=== PATIENT | female | born 1965 | race Caucasian/White ===

== ENCOUNTER → 2024-12-01 | Outpatient (CLI) | payer OTHER | LOC: M RAD 16:30 | PROVIDERS: ATTEND Internal Medicine | DX: Z12.2 Encounter for screening for malignant neoplasm of respiratory organs (principal); F17.210 Nicotine dependence, cigarettes, uncomplicated ==

== ENCOUNTER 2025-01-18 16:30 | Emergency (ER) | payer OTHER ==
[~2025-01-18] VITALS: Ht 174 cm; Wt 99.0 kg
[~2025-01-18 16:30] MED LIST: ALBU8.5H; FLUT12HF3; MONT10TA97; ROSU10TA61; VARE1TAB2
[2025-01-18] MEDS ORDERED: GLUCMIS7 XX (19:00)
[2025-01-18] MEDS ORDERED: LANC1COM MC (19:00)
[2025-01-18 19:15] VITALS: BP 150/70; TEMP 97.8; O2SAT 97
== END 2025-01-18 19:18 | disposition home or self-care (01) ==
LOC: M ED 16:30
DX: E16.2 Hypoglycemia, unspecified (principal); C91.00 Acute lymphoblastic leukemia not having achieved remission; J45.909 Unspecified asthma, uncomplicated; E78.5 Hyperlipidemia, unspecified; F17.200 Nicotine dependence, unspecified, uncomplicated